=== PATIENT | male | born 1990 | race Caucasian/White ===

== ENCOUNTER 2019-12-30 17:26 | Outpatient (REF) | payer MEDICAID, SELFPAY | END 2019-12-30 17:27 | disposition home or self-care (01) | LOC: HO.LAB 17:26 | PROVIDERS: Visit Provider Internal Medicine | DX: Z20.828 Contact with and (suspected) exposure to other viral communicable diseases (principal) | CPT/HCPCS: U0003 ==

== ENCOUNTER → 2022-04-17 14:59 | Outpatient (BNVA) | payer MEDICAID, SELFPAY | PROVIDERS: PCP Family Medicine; Visit Provider Physician Assistant | DX: M77.11 Lateral epicondylitis, right elbow (principal) | CPT/HCPCS: 99202 ==

== ENCOUNTER 2022-06-10 08:30 | Outpatient (RCR) | payer MEDICAID, SELFPAY ==
--- NOTE | 2022-05-17 14:14 | MHC.OT.EP ---
[address] [phone] Occupational Therapy Plan of Care Patient Name: Surendra Hoffman Date of Evaluation: 05/17/22 Diagnosis: Right arm pain Pain Location: 4-7 Right lateral elbow, radiates down to forearm and up to upper forearm Pain Score: 4 Pain Scale Used: Numeric (0 - 10) Aggravating Factors: Reaching out, grabbing, heavy lifting, sleep Alleviating Factors: Lidocaine patches, ibuprophen 3x/day, ice Assessment: 32 yo right hand dominant male presents w/ persistent right elbow and arm pain since January of last year. He enjoys lifting weights and states pain started but he tried to push through it. He has now been resting his arm and today reports overall improvement in pain and has been stretching and icing w/ good results. On assessment, he has some tenderness to palpate over lateral epicondyle and w/ resisted wrist extension. He reports pain primarily w/ lifting, gripping and sleeping. 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 Thank you once again for your referral.
--- NOTE | 2022-06-11 11:10 | MHC.OT.DC ---
[address] [phone] F: [phone] Occupational Therapy Discharge Note Patient Name: Surendra Hoffman Provider: Kevin Calderon Diagnosis: Right arm pain Date of Evaluation: 05/17/22 Date of Discharge: 06/10/22 Treatments to Date: 7 Discharge Status: Achieved Goals Improved Function Independent with HEP Discharge Summary: Surendra was referred to OT w/ acute right lateral epicondylitis, likely overuse w/ gym activity. He has progressed well and is overall pain free except occasionally on waking. We have discussed nighttime protection and has ordered elbow brace. He is Ind w/ home exercise program and has good follow through w/ counter force brace wear, activity modification and joint protection. He is starting new job in [employer] in two weeks and will continue to be mindful of positioning and is avoiding heavy upper body training at the gym until he starts his new job. Electronically Signed By: EL Barker/Jared CHT Reviewed/agree with student documentation: Therapist: Please Sign and return to therapist, thank you for your referral.
== END 2022-06-11 11:11 | disposition home or self-care (01) ==
LOC: HO.OT 08:30
PROVIDERS: PCP Registered Nurse Community Health; Visit Provider Physician Assistant
DX: M77.11 Lateral epicondylitis, right elbow (principal)
CPT/HCPCS: 97033; 97110; 97165

== ENCOUNTER 2023-03-11 19:11 | Outpatient (REF) | payer MEDICAID, SELFPAY | END 2023-03-11 19:12 | disposition home or self-care (01) | LOC: HO.HHCLNP 19:11 | PROVIDERS: Visit Provider Internal Medicine | DX: J06.9 Acute upper respiratory infection, unspecified (principal) | CPT/HCPCS: 87070 ==

== ENCOUNTER 2023-12-11 15:14 | Outpatient (REF) | payer MEDICAID, SELFPAY ==
[2023-12-11 16:11] LABS: MANUAL DIFF FLAG NO
[2023-12-11 16:19] LABS: Basophils Absolute Auto 0.1 X10*3/uL (0.0-0.2); Basophils Percent Auto 0.6 % (0-2); Eosinophils Absolute Auto 0.3 X10*3/uL (0.0-0.4); Eosinophils Percent Auto 3.3 % (0-4); Hematocrit 45.4 % (42.0-52.0); Hemoglobin 14.6 g/dl (14.0-18.0); Imm Gran Abs Auto 0.04 X10*3/uL (0.00-0.03); Imm Gran Pct Auto 0.5 % (0.0-0.4); Lymphocytes Absolute Auto 2.7 X10*3/uL (1.2-4.9); Lymphocytes Percent Auto 31.3 % (20-40); Mean Corpuscular HGB Conc 32.2 g/dl (31.0-36.0); Mean Corpuscular Hemoglobin 28.5 pg (27.0-33.0); Mean Corpuscular Volume 88.5 fL (80.0-98.0); Mean Platelet Volume 9.2 fL (9.4-12.4); Monocytes Absolute Auto 0.6 X10*3/uL (0.1-1.2); Monocytes Percent Auto 6.5 % (2-11); Neutrophils Absolute Auto 4.9 x10*3/uL (2.0-8.3); Neutrophils Percent Auto 57.8 % (45-73); Platelet Count 279 X10*3/uL (160-400); Red Blood Count 5.13 X10*6/uL (4.60-5.80); Red Cell Distribution Width 13.1 % (11.0-16.0); White Blood Count 8.5 X10*3/uL (4.8-10.8)
[2023-12-11 16:25] LABS: Estimated Average Glucose 111 mg/dL; Hemoglobin A1C 134.4673 umol/L; Hemoglobin A1c % 5.5 % (<6.0); Total Hemoglobin (HGBA1C) 3713.7977 umol/L
[2023-12-11 16:35] LABS: Alanine Aminotransferase 26 U/L (0-40); Albumin Level 4.9 g/dL (3.5-5.0); Alkaline Phosphatase 70 U/L (39-117); Anion Gap 11 (12-20); Aspartate Amino Transferase 23 U/L (5-37); Bilirubin Total 0.6 mg/dL (0.0-1.0); Blood Urea Nitrogen 19 mg/dL (9-16); Calcium 10.6 mg/dL (8.4-10.2); Carbon Dioxide 28 mmol/L (22-29); Chloride 105 mmol/L (96-108); Cholesterol 263 mg/dL (<200); Estimated Glomerular Filt Rate > 60; Glucose Random 81 mg/dL (60-115); HDL Cholesterol 58 mg/dL (>40); LDL Cholesterol Calculated 188 mg/dL (<100); Sodium 140 mmol/L (135-145); Triglycerides 88 mg/dL (<150)
[2023-12-11 16:50] LABS: TSH reflex Free T4 1.09 uIU/mL (0.32-4.0); Vitamin D 25-OH Total 64.1 ng/mL (>30)
[2023-12-12 08:28] LABS: HIV AB/AG Nonreactive (Nonreactive); HIV Num 1 0.06 S/CO (0.00-0.99); ~HepC Num1 0.64 S/CO (0.00-0.79); ~Hepatitis C Antibody Nonreactive (Nonreactive)
== END 2023-12-11 15:15 | disposition home or self-care (01) ==
LOC: HO.HHCL 15:14
PROVIDERS: Visit Provider Internal Medicine
DX: R16.0 Hepatomegaly, not elsewhere classified (principal)
CPT/HCPCS: 36415; 80053; 80061; 82306; 83036; 84443; 85025; 86803; 87389

== ENCOUNTER 2023-12-24 09:35 | Outpatient (REF) | payer MEDICAID, SELFPAY ==
--- NOTE | ~2023-12-24 | US_ITS ---
EXAMINATION: US ABDOMEN COMPLETE CLINICAL INFORMATION: History of benign liver mass. COMPARISON: Ultrasound abdomen 09/23/2019 and 03/17/2019. MRI abdomen 09/27/2016. CT abdomen and pelvis 07/15/2016. TECHNIQUE: Real-time imaging of the abdominal viscera. Limited visualization due to bowel gas. FINDINGS: PANCREAS: Limited visualization. ABDOMINAL AORTA: Limited visualization of the abdominal aorta. Imaged portions of the abdominal aorta are within normal limits in caliber. INFERIOR VENA CAVA: Visualized portions are normal. LIVER: Hepatomegaly, 18.4 cm. Increased hepatic parenchymal heterogeneity and echogenicity could be associated with hepatocellular disease/hepatic steatosis and substantially limits visualization. Hypoechoic areas within liver adjacent to the gallbladder are characteristic of focal sparing. Correlation with liver function tests and clinical exam recommended to determine further management. GALLBLADDER: No gallstones. No gallbladder wall thickening. COMMON BILE DUCT: Normal in caliber measuring 0.4 cm in diameter. RIGHT KIDNEY: No hydronephrosis. No renal calculi. Limited visualization. The kidney measures 11.4 cm in maximum dimension. LEFT KIDNEY: No hydronephrosis. No renal calculi. Limited visualization. The kidney measures 11.4 cm in maximum dimension. SPLEEN: Normal. The spleen measures 10.4 cm in maximum dimension. FREE FLUID: None. US/US abdomen complete IMPRESSION: Hepatomegaly, 18.4 cm. Increased hepatic parenchymal heterogeneity and echogenicity could be associated with hepatocellular disease/hepatic steatosis and substantially limits visualization. Hypoechoic areas within liver adjacent to the gallbladder characteristic of focal sparing. Correlation with liver function tests and clinical exam recommended to determine further management. Electronically signed by: Regine Bateman MD 01/18/2024 08:49 PM EST
== END 2023-12-24 09:36 | disposition home or self-care (01) ==
LOC: HO.US 09:35
PROVIDERS: PCP Internal Medicine; Visit Provider Internal Medicine
DX: R16.0 Hepatomegaly, not elsewhere classified (principal)
CPT/HCPCS: 76700

== ENCOUNTER 2024-02-04 11:30 | Outpatient (AMB) | payer OTHER, SELFPAY ==
--- NOTE | 2024-02-04 11:33 | MHC.OFFVIS ---
Vital Signs 02/04/24 11:36 Height 6 ft 2 in Weight 222 lb 10.67 oz BMI 28.6 Blood Pressure Location Lt brachial Position Sitting Intake Visit Reasons: Liver MAss Intake Note: Surendra presents in the office as a new patient for a liver mass. CC: States that he has a mass on his liver that is not cancer. He is here for a monitor. 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 Increased hepatic parenchymal heterogeneity and echogenicity could be associated with hepatocellular disease/hepatic steatosis and substantially limits visualization. Hypoechoic areas within liver adjacent to the gallbladder are characteristic of focal sparing. Correlation with liver function tests and clinical exam recommended to determine further management. Assessment & Plan Assessment & Plan (1) Hypercalcemia: Code(s): E83.52 - Hypercalcemia Category: Medical (2) Fatty liver: Code(s): K76.0 - Fatty (change of) liver, not elsewhere classified Category: Medical (3) Liver tumor: Code(s): D49.0 - Neoplasm of unspecified behavior of digestive system Category: Medical Plan 34 y.o M who is here to re-estbalish care for abnormal liver imaging. Pt reports being told almost 5 years ago which showed a benign liver tumor . However unable to locate any imaging with a liver mass specifically. Does have quite dramatic fatty liver with hepatomegaly on US 12/2023. Spleen size normal. No thrombocytopenia. Most recent LFTs normal. Pt without abd pain, N,V. DOes report drinking here and there . Cholesterol elevated. Pt not on any lipid lowering meds. A1c normal. Prev work up: Neg for chronic hep Neg for AIH AFP low. Incidentally noted was persistent hypercalcemia. Vit D normal. Assessment: # Fatty liver: likely metALD. Strict counseling for etOH use done. Will check peth. Pt will also be started on a statin. Cont exercise daily. Given severe heterogeneity on US liver which limits visualisation will also get an AFP and MRI liver protocol to r/o underlying mass. # Hypercal. Noted since 2019. Vit D normal. Will chris remaining labs as below. Plan: - Labs as below - MRI liver protocol - Start mod intensity atorva 20 - HyperCal labs ordered Follow up 3 months Orders: Orders Alpha Fetoprotein Today K76.0 - Fatty (change of) liver, not elsewhere classified Calcium, Ionized Today E83.52 - Hypercalcemia Ferritin Today K76.0 - Fatty (change of) liver, not elsewhere classified Immunoglobulin A Today K76.0 - Fatty (change of) liver, not elsewhere classified MR abdomen wo/w con Today D49.0 - Neoplasm of unspecified behavior of digestive system PTH Intact Intraoperative Today E83.52 - Hypercalcemia Phosphatidylethanol, Blood Today K76.0 - Fatty (change of) liver, not elsewhere classified Phosphorus Today E83.52 - Hypercalcemia Alpha 1 Anti-trypsin Today K76.0 - Fatty (change of) liver, not elsewhere classified Ceruloplasmin Today K76.0 - Fatty (change of) liver, not elsewhere classified IRON PROFILE Today K76.0 - Fatty (change of) liver, not elsewhere classified Transglutaminase IgA Today K76.0 - Fatty (change of) liver, not elsewhere classified Medications: New atorvastatin 20 mg PO DAILY 90 tabs 1RF Coding Level of Care Code New Pt Level 4 (77175) Complex EM visit Add On G2211 Diagnoses Hypercalcemia E83.52 Fatty liver K76.0 Liver tumor D49.0
[2024-02-04 11:36] VITALS: BMI 28.6
== END 2024-02-04 12:52 | disposition home or self-care (01) ==
PROVIDERS: PCP Internal Medicine; Visit Provider Internal Medicine
DX: E83.52 Hypercalcemia (principal); K76.0 Fatty (change of) liver, not elsewhere classified; D49.0 Neoplasm of unspecified behavior of digestive system
CPT/HCPCS: 99204; G2211

== ENCOUNTER 2024-02-04 11:30 | Outpatient (REF) | payer OTHER, SELFPAY ==
[2024-02-04 14:01] LABS: Parathyroid Hormone Intact 42.9 pg/mL (8.7-77.1)
[2024-02-04 14:15] LABS: Iron 125 mcg/dL (45-160); Percent Iron Saturation 35 % (15-50); Phosphorus 3.2 mg/dL (2.7-4.5); Total Iron Binding Capacity 361 mcg/dL (228-428); Unsaturated Iron Binding 236 ug/dL
[2024-02-04 14:57] LABS: Ferritin 279 ng/mL (20-250)
[2024-02-05 16:43] LABS: Immunoglobulin A 235 mg/dL (47-310)
[2024-02-05 21:18] LABS: Transglutaminase IgA <1.0 U/mL
[2024-02-06 11:34] LABS: Calcium, Ionized 5.4 mg/dL (4.7-5.5)
[2024-02-06 12:44] LABS: Alpha 1 Anti-trypsin 135 mg/dL (83-199); Alpha Fetoprotein 1.4 ng/mL (<6.1); Ceruloplasmin 23 mg/dL (14-30)
[2024-02-10 10:03] LABS: Phosphatidylethanol 16:0-18:1 83 (H); Phosphatidylethanol 16:0-18:2 70 (H)
== END 2024-02-04 11:31 | disposition home or self-care (01) ==
LOC: HO.LAB 11:30
PROVIDERS: PCP Internal Medicine; Visit Provider Internal Medicine
DX: K76.0 Fatty (change of) liver, not elsewhere classified (principal); E83.52 Hypercalcemia; D49.0 Neoplasm of unspecified behavior of digestive system
CPT/HCPCS: 36415; 80321; 82103; 82105; 82330; 82390; 82728; 82784; 83540; 83970; 84100; 86364; 99202

== ENCOUNTER → 2024-03-24 13:55 | Outpatient (BNV) | payer OTHER, SELFPAY | PROVIDERS: PCP Internal Medicine; Visit Provider Radiology Diagnostic Radiology | DX: D49.0 Neoplasm of unspecified behavior of digestive system (principal) | CPT/HCPCS: 74183 ==

== ENCOUNTER 2024-03-24 13:58 | Outpatient (REF) | payer OTHER, SELFPAY ==
--- NOTE | ~2024-03-24 | MR_ITS ---
CLINICAL HISTORY: D49.0 - Neoplasm of unspecified behavior of digestive system Exam: MRI of the abdomen with and without intravenous contrast. Comparison: US/SR - US ABDOMEN COMPLETE - 12/24/23 09:58 EDT MR - MRI ABDOMEN WOW CONT [id number] - 09/27/16 16:00 EDT Findings: Liver is unremarkable. No hyperenhancing lesions seen within the liver. No intrahepatic biliary ductal dilatation. Main portal vein is patent. Spleen, pancreas, gallbladder, and adrenal glands are unremarkable. Symmetric enhancement of the kidneys without mass, hydronephrosis, or nephrolithiasis. Large amount of ingested contents within the stomach. No dilated small bowel. No free fluid or free air. Broad-based disc bulge is seen at the T8-9 disc level without cord signal abnormality or significant central canal stenosis. Bony structures are otherwise unremarkable. IMPRESSION: 1. No acute solid organ abnormality. 2. Unremarkable MRI of the gallbladder and biliary tree. 3. Nonspecific ingested contents within the stomach. This can be seen with recent ingestion of a meal or delayed gastric emptying. This document has been electronically signed by: Juan Daniel Buchanan MD on 03/25/2024 10:18:35
[2024-03-24] MEDS: gadobutroL 10 ML VIAL IVPUSH (14:38)
--- OUTSIDE RECORDS SUMMARY | 2024-03-24 16:16 | XMS_ITS | Clinical Summary ---
Author Organization [employer] Address [address] [facility] [address] [place] [address] Care Team Providers Care Coyote Hunter Name Role Phone Zulema Callejas MD Primary Care Provide r Allergies Active Allergy Reactions Criticality Noted Date Comments Gramineae Pollens 03/19/2022 Horse Epithelium 03/19/2022 Shellfish Allergy 03/19/2022 Medications EPINEPHrine (Epipen) 0.3 MG/0.3ML injection syringe Inject 0.3 mL into the shoulder, thigh, or buttocks. 6 Active loratadine (Claritin) 10 MG tabletIndication s:Allergic rhinitis due to pollen, unspecified seasonality Take 1 tablet (10 mg) by mouth in the morning. 30 tablet 3 Active fluticasone (Flonase) 50 MCG/ACT nasal sprayIndications :Allergic rhinitis due to pollen, unspecified seasonality Administer 1-2 sprays into each nostril if needed each day for allergies. 16 g 5 3 Active Diclofenac Sodium 1 % gelIndications:A cute left-sided low back pain without sciatica Apply topically to the affected area TID prn for pain 50 g 1 4 Active Active Problems Problem Noted Date Diagnosed Date Liver mass 12/11/2023 Assessment & Plan (12/11/2023 4:12 PM EDT): US ordered today for f/u GI referral done Pain in both feet 12/11/2023 Assessment & Plan (12/11/2023 4:12 PM EDT): Podiatry referral Dog bite of arm, left, subsequent encounter 10/01 Assessment & Plan (10/14/2023 7:45 PM EDT): Its healing well, continue abs. Td is up to date, less than 5y ago. Patient advised to contact dog catch basin cleaner and inquire re rabies vaccination status. I spoke with [facility] contract agent Betty who advised against rabies IZ now as attack was considered provoked (victim was invading property in dogs eyes) and prevalence of unvaccinated dogs in [place] is extremely low. She requested patient information to call him and have him fu by local animal control department. Patient to re consult prn. Gastroenteritis 07/14/2023 Assessment & Plan (07/14/2023 8:04 PM EDT): Advised rre oral hydration: [place], Gatorade, crystal lite, broth. Use Imodium prn diarrhea Advance to BRAT then soft diet as tolerated. Rest for 1-2d at home, out of work x 2d. Allergic rhinitis due to pollen 10/23/2015 Resolved Problems Problem Noted Date Diagnosed Date Resolved Date Shellfish allergy 11/01/2022 12/11/2023 Encounters Date Type Department Care Team Description 12/30/2023 Telephone [facility] [address] [place] [phone] Zulema Callejas MD from Last 3 Months Immunizations Name Administration Dates Next Due DTaP 1992,1992,1992 Hep A, Adult 03/27/2018,04/04/2017 Hep B, Adolescent or Pediatric 09/16/2001,2001,02/13/2000 IPV 07/05/1994, 3,1992,05/03,1992 Influenza injectable quadriv alent IIV4 with preservative 12/20/2015 Influenza injectable quadriv alent preservative free 12/25/2018,03/27/2018,02/21/2017 Influenza, IIV3, injectable 02/01/2008, 6 Influenza, Split (incl. tee fied surface antigen) 12/18/2012 Influenza, live, intranasal 11/07/2011 Influenza, seasonal, injecta ble, preservative free 12/11/2023 MMR 04/14/2001,02/13/2000 Measles 1992 Meningococcal MPSV4 07/25/2006 Pfizer Covid-19 Vaccine 12+ 12/11/2023 TD (adult), 2 Lf tetanus tox oid, preservative free, adsorbed 11/02/2020,04/14/2001,03/13/1995 Tdap 08/21/2010 Varicella 10/19/2009,02/13/2000 Family History Medical History Relation Name Comments Hypertension Maternal Grandfather Cancer Other fmhx of gastric CA Relation Name Status Comments Maternal Grandfather Other Social History Tobacco Use Types Packs/Day Years Used Date Smoking Tobacco: Never Passive Smoke Exposure: Past Smokeless Tobacco: Never Tobacco Cessation:Counseling Given: Not Answered Alcohol Use Standard Drinks/Week Comments Not Currently 0 (1 standard drink = 0.6 oz pur e alcohol) occassional Depression Answer Date Recorded Patient Health Questionnaire-9 Score 1 12/11/2023 Patient Health Questionnaire-9 Score 1 12/11/2023 Last PHQ-9: Questionnaire Data Not on file 1 Housing Stability Answer Date Recorded What is your housing situation today? I have cristinajanes harden 12/04/[address] you li ve. Do you have problems with any of the following? None of the above 12/04/2023 Food Insecurity Answer Date Recorded Within the past 12 months, y ou worried that your food would run out before you got money to buy more: Never True 12/04/2023 Within the past 12 months,th e food you bought just didn't last and you didn't have enough money to get more: Never True 05/2023 Transportation Answer Date Recorded In the past 12 months, has l ack of transportation kept you from medical appts, meetings, work or from getting things needed for daily living? No 12/04/2023 Utilities Answer Date Recorded In the past 12 months, has t he electric, gas, oil or water company threatened to shut off services in your home? No 12/04/2023 Depression Answer Date Recorded Patient Health Questionnaire-2 Score 0 12/11/2023 Internet Access Answer Date Recorded Internet Access Q1 Yes 12/11/2023 Internet Access Q2 Not on file 12/11/2023 Sex and Gender Information Value Date Recorded Sex Assigned at Male 12/31/2021 10:16 AM EDT Legal Sex Male 10:16 AM EDT Gender Identity Male 12/31/2021 10:16 AM EDT Sexual Orientation Straight 12/31/2021 10 :16 AM EDT Last Filed Vital Signs Vital Sign Reading Time Taken Comments Blood Pressure 134/90 12/11/2023 2:10 PM EDT Pulse 74 12/11/2023 2:10 PM EDT Temperature 36.2 ??C (97.1 ??F) 12/11/2023 2:10 PM ED T Respiratory Rate 22 12/11/2023 2:10 PM EDT Oxygen Saturation 98% 12/11/2023 2:10 PM EDT Inhaled Oxygen Concentration - - Weight 97.7 kg (215 lb 6.4 oz) 12/11/2023 2:10 P M EDT Height 191.8 cm (6' 3.5 ) 12/11/2023 2:10 PM EDT Body Mass Index 26.57 12/11/2023 2:10 PM EDT Plan of Treatment Health Maintenance Due Date Last Done Comments Alcohol/Substance Use Screening 2004 Depression Screening 12/10/2024 12/11/2023, 12/11/19 24 SDOH Screening 12/10/2024 12/11/2023 Tobacco Screening 12/10/2024 12/11/2023 DTaP/Tdap/Td Vaccines (7 - Td or Tdap) 11/02/2030 11/02/2020, 08/21/2010, 04/14/2001, Additional history exists Zoster Vaccines (1 of 2) 01/20/2042 RSV Patients and Patients Aged 60 years or older (1 - 1-dose 75+ series) 01/20/2067 IPV Vaccines Completed 07/05/1994, 0 03/1992, 1992, Additional history exists Hepatitis B Vaccines Completed 09/16/2001, 04/20/2001, 02/13/2000 Meningococcal Vaccine Aged Out 07/25/2006 No elena chris eligible based on patient's age to complete this topic Hepatitis A Vaccines Completed 03/27/2018, 04/04/19 18 COVID-19 Vaccine Completed 12/11/2023, , 07/17/2020 HIV Screening Completed 12/11/2023, 08/01, 11/13/2020 Hepatitis C Screening Completed 12/11/2023 , 08/16/2021, 11/13/2020 Influenza Vaccine Completed 12/11/2023, , 03/27/2018, Additional history exists HIB Vaccines Aged Out No longer eligi ble based on patient's age to complete this topic HPV Vaccines Aged Out No longer eligi ble based on patient's age to complete this topic Pneumococcal Vaccine: Pediatrics (0 to 5 Years) and At-Risk Patients (6 to 64 Years) Aged Out No longer eligible based on patient's age to complete this topic RSV under 20 months Aged Out No longe r eligible based on patient's age to complete this topic Rotavirus Vaccines Aged Out No longer eligible based on patient's age to complete this topic Procedures Procedure Name Priority Date/Time Associated Diagnosis Comments DRUG MONITORING, PHOSPHATIDYLETHANOL (PETH), BLOOD Routine 02/04/2024 12:22 PM EST VNBVR-1-MZYCAFUENDD QN Routine 12:22 PM EST ALPHA FETOPROTEIN, TUMOR MARKER Routine 02/04/2024 12:22 PM EST CERULOPLASMIN Routine 02/04/2024 12:22 PM EST CALCIUM, IONIZED Routine 02/04/2024 12:2 2 PM EST TISSUE TRANSGLUTAMINASE AB, IGA Routine 02/04/2024 12:22 PM EST IMMUNOGLOBULIN A Routine 02/04/2024 12:2 2 PM EST FERRITIN Routine 02/04/2024 12:22 PM EST IRON AND TOTAL IRON BINDING CAPACITY Routine 02/04/2024 12:22 PM EST PHOSPHATE ( PHOSPHORUS) Routine 2023 12:22 PM EST US ABDOMEN COMPLETE Routine 12/24/2023 9 :58 AM EDT Liver mass HEPATITIS C AB W/REFL TO HCV RNA, QN, PCR Routine 12/11/2023 3:19 PM EDT Liver mass HIV 1/2 ANTIGEN/ANTIBODY, FOURTH GENERATION W/RFL Routine 12/11/2023 3:19 PM EDT Liver mass from Last 3 Months or Most Recently Relevant to Health Maintenance Results * Drug Monitoring, Phosphatidylethanol (PEth), Blood (02/04/2024 12:22 PM EST) Phosphatidylethanol, Blood 83 (H) [facility] Comment:REFERENCE RANGE: <20 ng/mLTHIS TEST PERFORMED AT:[facility] [address] [phone] DIRECTOR: GIOVANY BRO MD, PHD PEt 16:0/18:2 (PLPEth) 70 (H) [facility] Comment:REFERENCE RANGE: <20 ng/mLTHIS TEST PERFORMED AT:[facility] [id number] [place] [phone] DIRECTOR: GIOVANY BRO MD, PHD [facility] Comments SEE NOTE [facility] Comment:This drug testing is for medical treatment only.Analysis was performed as non-forensic testing andthese results should be used only by healthcareproviders to render diagnosis or treatment, or tomonitor progress of medical conditions.LDT Notes:Confirmation tests were developed and their analyticalperformance characteristics have been determined by[employer]. It has not been cleared or approvedby the FDA. This assay has been validated pursuant tothe CLIA regulations and is used for clinical purposes.Healthcare Providers needing Interpretation assistance,please contact us at [phone] ( )M-F, 8am to 10pm ESTTHIS TEST PERFORMED AT:[facility] [place] [phone] DIRECTOR: MARYELLEN MENG MD 02/04/2024 12:2 2 PM EST 02/04/2024 12:22 PM EST Generic External Data Provider LAB BLOOD ORDERAB LES Final Result Performing Organization Address [facility]/ZIP Co de Phone Number [facility] [address] [place] [phone] * Iron And Total Iron Binding Capacity (02/04/2024 12:22 PM EST) Iron 125 45 - 160 mcg/dL [facility] Total Iron Binding Capacity 361 228 - 428 mcg/dL [facility] Percent Iron Saturation 35 15 - 50 % [facility] Unsaturated Iron Binding 236 ug/dL [facility] 02/04/2024 12:2 2 PM EST 02/04/2024 12:22 PM EST Generic External Data Provider LAB BLOOD ORDERAB LES Final Result Performing Organization Address [facility] Co de Phone Number [facility] [address] [place] [phone] * Hhwmt-6-Ojvicnjlnzt, Quantitative (02/04/2024 12:22 PM EST) Yxpnn-7-Qjvzobkt sin QN 135 83 - 199 mg/dL [facility] Comment:THIS TEST WAS PERFOR MED AT:[facility] [place] [phone] MENG MD 02/04/2024 12:2 2 PM EST 02/04/2024 12:22 PM EST Generic External Data Provider LAB BLOOD ORDERAB LES Final Result Performing Organization Address [facility] Co de Phone Number [facility] [address] [place] [phone] * Tissue Transglutaminase Antibody, IgA (02/04/2024 12:22 PM EST) Transglutaminase IgA <1.0 U/mL [facility] Comment:Value Interpretation ----- <15.0 Antibody not detected> or = 15.0 Antibody detectedTHIS TEST WAS PERFORMED AT:[facility] [address] [address]GZFOIMARYELLEN MENG MD 02/04/2024 12:2 2 PM EST 02/04/2024 12:22 PM EST Generic External Data Provider LAB BLOOD ORDERAB LES Final Result Performing Organization Address [facility] Number [facility] [address] [place] [phone] * Ceruloplasmin (02/04/2024 12:22 PM EST) Pathologist [facility] Ceruloplasmin 23 14 - 30 mg/dL [facility] Comment:THIS TEST WAS PERFOR MED AT:[facility] [address] [id number] MENG MD 02/04/2024 12:2 2 PM EST 02/04/2024 12:22 PM EST Generic External Data Provider LAB BLOOD ORDERAB LES Final Result Performing Organization Address [facility] de Phone Number [facility] [address] [place] [phone] * Alpha-Fetoprotein, Tumor Marker (02/04/2024 12:22 PM EST) Pathologist [facility] Alpha Fetoprotein 1.4 <6.1 ng/mL [facility] Comment:This test was perfor med using the Elis Coulterchemiluminescent method. Values obtained fromdifferent assay methods cannot be usedinterchangeably. AFP levels, regardless ofvalue, should not be interpreted as absoluteevidence of the presence or absence of disease.THIS TEST WAS PERFORMED AT:[facility] [address] [phone] MENG MD 02/04/2024 12:2 2 PM EST 02/04/2024 12:22 PM EST Generic External Data Provider LAB BLOOD ORDERAB LES Final Result Performing Organization Address [facility] Co de Phone Number [facility] [address] [place] [phone] * Phosphate (As Phosphorus) (02/04/2024 12:22 PM EST) Phosphorus 3.2 2.7 - 4.5 mg/dL [facility] 02/04/2024 12:2 2 PM EST 02/04/2024 12:22 PM EST Generic External Data Provider LAB BLOOD ORDERAB LES Final Result Performing Organization Address [facility] Co de Phone Number [facility] [address] [place] [phone] * Immunoglobulin A (02/04/2024 12:22 PM EST) Immunoglobulin A 235 47 - 310 mg/dL [facility] Comment:THIS TEST WAS PERFOR MED AT:[facility] [address] [address]NCVAQCHRIS MENG MD 02/04/2024 12:2 2 PM EST 02/04/2024 12:22 PM EST Generic External Data Provider LAB BLOOD ORDERAB LES Final Result Performing Organization Address City/[facility] Co de Phone Number [facility] [address] [place] [address] [phone] * (ABNORMAL) Ferritin (02/04/2024 12:22 PM EST) Ferritin 279(H) 20 - 250 ng/mL [facility] 02/04/2024 12:2 2 PM EST 02/04/2024 12:22 PM EST us Generic External Data Provider LAB BLOOD ORDERAB LES Final Result [facility] [address] [place] [phone] * Calcium, Ionized (02/04/2024 12:22 PM EST) Calcium, Ionized 5.4 4.7 - 5.5 mg/dL [facility] Comment:THIS TEST WAS PERFOR MED AT:[facility] [place] [phone] MENG MD 02/04/2024 12:2 2 PM EST 02/04/2024 12:22 PM EST us Generic External Data Provider LAB BLOOD ORDERAB LES Final Result Performing Organization Address [facility]/ZIP Co de Phone Number [facility] [address] [place] [phone] * US Abdomen Complete (12/24/2023 9:58 AM EDT) Anatomical Region Laterality Modality Abdomen Ultrasound 12/24/2023 9:58 AM EDT Narrative 01/18/2024 8:52 PM EST ? [facility] ?[address] ?[place] [address] ? Ultrasound Report ? Signed ? Patient: Hoffman,Surendra L ?MR#: [id number] ?? 0 ? : 1990 ?Acct:[id number] ? Age/Sex: 33 / M ?ADM Date: 10/23/24 ? Loc: HO.US ? Attending Dr: Zulema Mchugh MD ? Ordering Physician: Zulema Callejas MD ?? Date of Service: 12/24/23 ?? Procedure(s): US abdomen complete ?? Accession Number(s): [id number] ? cc: Zulema Callejas MD ? EXAMINATION: ?? US ABDOMEN COMPLETE ? CLINICAL INFORMATION: ?? History of benign liver mass. ? COMPARISON: ?? Ultrasound abdomen 09/23/2019 and 03/17/2019. MRI abdomen 09/27/2016. ?? CT abdomen and pelvis 07/15/2016. ? TECHNIQUE: ?? Real-time imaging of the abdominal viscera. ?? Limited visualization due to bowel gas. ? FINDINGS: ? PANCREAS: Limited visualization. ? ABDOMINAL AORTA: Limited visualization of the abdominal aorta. Imaged ?? portions of the abdominal aorta are within normal limits in caliber. ? INFERIOR VENA CAVA: Visualized portions are normal. ? LIVER: Hepatomegaly, 18.4 cm. Increased hepatic parenchymal ?? heterogeneity and echogenicity could be associated with hepatocellular ?? disease/hepatic steatosis and substantially limits visualization. ?? Hypoechoic areas within liver adjacent to the gallbladder are ?? characteristic of focal sparing. Correlation with liver function tests ?? and clinical exam recommended to determine further management. ? GALLBLADDER: No gallstones. No gallbladder wall thickening. ? COMMON BILE DUCT: Normal in caliber measuring 0.4 cm in diameter. ? RIGHT KIDNEY: No hydronephrosis. No renal calculi. Limited ?? visualization. The kidney measures 11.4 cm in maximum dimension. ? LEFT KIDNEY: No hydronephrosis. No renal calculi. Limited ?? visualization. The kidney measures 11.4 cm in maximum dimension. ? SPLEEN: Normal. The spleen measures 10.4 cm in maximum dimension. ? FREE FLUID: None. ? US/US abdomen complete ?? IMPRESSION: ?? Hepatomegaly, 18.4 cm. Increased hepatic parenchymal heterogeneity and ?? echogenicity could be associated with hepatocellular disease/hepatic ?? steatosis and substantially limits visualization. Hypoechoic areas ?? within liver adjacent to the gallbladder characteristic of focal ?? sparing. Correlation with liver function tests and clinical exam ?? recommended to determine further management. ? Electronically signed by: ??Regine Bateman MD ??01/18/2024 08:49 PM EST ?? RP ? Dictated By: ?Regine Bateman MD ? Signed By: ?<Electronically signed by Regine Bateman MD in OV> ? 01/18/242048 ? DD/ 0958 ? TD/TT: 12/24/23 1010 ? [employer] Techn[employer]: ? Procedure Note Donotuseinterpreter, Image - 01/18/[address] [address] Ultrasound Report Signed Patient: Surendra Hoffman LMR#: [id number] 0 : 1990Acct:[id number] Age/Sex: 33 / MADM Date: 12/24/23 Loc: HO.US Attending Dr: Zulema Mchugh MD Ordering Physician: Zulema Callejas MD Date of Service: 12/24/23 Procedure(s): US abdomen complete Accession Number(s): [id number] cc: Zulema Callejas MD EXAMINATION: US ABDOMEN COMPLETE CLINICAL INFORMATION: History of benign liver mass. COMPARISON: Ultrasound abdomen 09/23/2019 and 03/17/2019. MRI abdomen 09/27/2016. CT abdomen and pelvis 07/15/2016. TECHNIQUE: Real-time imaging of the abdominal viscera. Limited visualization due to bowel gas. FINDINGS: PANCREAS: Limited visualization. ABDOMINAL AORTA: Limited visualization of the abdominal aorta. Imaged portions of the abdominal aorta are within normal limits in caliber. INFERIOR VENA CAVA: Visualized portions are normal. LIVER: Hepatomegaly, 18.4 cm. Increased hepatic parenchymal heterogeneity and echogenicity could be associated with hepatocellular disease/hepatic steatosis and substantially limits visualization. Hypoechoic areas within liver adjacent to the gallbladder are characteristic of focal sparing. Correlation with liver function tests and clinical exam recommended to determine further management. GALLBLADDER: No gallstones. No gallbladder wall thickening. COMMON BILE DUCT: Normal in caliber measuring 0.4 cm in diameter. RIGHT KIDNEY: No hydronephrosis. No renal calculi. Limited visualization. The kidney measures 11.4 cm in maximum dimension. LEFT KIDNEY: No hydronephrosis. No renal calculi. Limited visualization. The kidney measures 11.4 cm in maximum dimension. SPLEEN: Normal. The spleen measures 10.4 cm in maximum dimension. FREE FLUID: None. US/US abdomen complete IMPRESSION: Hepatomegaly, 18.4 cm. Increased hepatic parenchymal heterogeneity and echogenicity could be associated with hepatocellular disease/hepatic steatosis and substantially limits visualization. Hypoechoic areas within liver adjacent to the gallbladder characteristic of focal sparing. Correlation with liver function tests and clinical exam recommended to determine further management. Electronically signed by: Regine Bateman MD 01/18/2024 08:49 PM EST Dictated By: Regine Bateman MD Signed By: <Electronically signed by Regine Bateman MD in OV> 01/18/242048 DD/ 7 TD/TT: 12/24/23 1010 Quality Technician [employer]: us Zulema Mchugh MD IMG US PROCEDURES Matt vidal Result - Final * Hepatitis C Antibody with Reflex to HCV, RNA, Quantitative, Real-Time PCR (12/11/2023 3:19 PM EDT) Hepatitis C Antibody Nonreactive Nonreactive [facility] Comment:Antibodies to HCV no t detected; does not exclude early acuteHCV infection. Blood Venous blood specimen / Unknown 12/11/2023 3:19 PM EDT 12/11/2023 4:08 PM EDT Zulema Mchugh MD LAB BLOOD ORDERABLES Final Result [facility] [address], [place] [phone] * HIV-1/2 Antigen and Antibodies, Fourth Generation, with Reflexes (12/11/2023 3:19 PM EDT) HIV AB/AG Nonreactive Nonreactive [facility] Comment:HIV-1 p24 Ag and/or HIV-1/HIV-2 Ab not detected.A test result that is nonreactive does not exclude thepossibility of exposure to or infection with HIV-1 and/orHIV-2. Nonreactive results in this assay for individualswith prior exposure to HIV-1 and/or HIV-2 may be due toantigen and antibody levels that are below the limit ofdetection of this assay.The ProtecodeniIncont HIV Ag/Ab Combo assay result andsupplemental assay results should be interpreted inconjunction with the patient's clinical presentation,history and other laboratory results. If the results areinconsistent with clinical evidence, additional testing issuggested to confirm the result. Blood Venous blood specimen / Unknown 12/11/2023 3:19 PM EDT 12/11/2023 4:08 PM EDT us Zulema Mchugh MD LAB BLOOD ORDERABLES Final Result [facility] [address] [place] [phone] from Last 3 Months or Most Recently Relevant to Health Maintenance Insurance [facility] C[employer] [id number] Advance Directives Documents on File Type Date Recorded Patient Supervisor [employer] Expl anation Advance Directives and Livin g Will 10/14/2023 2:58 PM Care Teams Coyote Hunter Relationship Specialty Start Date End Date Zulema Callejas MD [address] [place] [phone] PCP - General Internal Medicine 12/11/23
--- OUTSIDE RECORDS SUMMARY | 2024-03-24 16:16 | XMS_ITS | Encounter Summary ---
Author Organization [employer] Address [address] [place] [address] Care Team Providers Care Trouble Operator Name Role Phone Zulema Callejas MD Primary Care Provide r Encounter Details Date Type Department Care Team ([facility] st Contact Info) Description 12/12/2023 Orders Only [facility] [address] [place] [address] Zulema Callejas MD [address] [place], [place] [phone] Social History Tobacco Use Types Packs/Day Years Used Date Smoking Tobacco: Never Passive Smoke Exposure: Past Smokeless Tobacco: Never Alcohol Use Standard Drinks/Week Comments Not Currently 0 (1 standard drink = 0.6 oz pur e alcohol) occassional Depression Answer Date Recorded Patient Health Questionnaire-9 Score 1 12/11/2023 Patient Health Questionnaire-9 Score 1 12/11/2023 Last PHQ-9: Questionnaire Data Not on file 1 Housing Stability Answer Date Recorded What is your housing situation today? I have cristina harden 12/04/[address] you [...] Orientation Straight 12/31/2021 10 :16 AM EDT documented as of this encounter Plan of Treatment Not on file documented as of this encounter Procedures Procedure Name Priority Date/Time Associated Diagnosis Comments DRUG MONITORING, PHOSPHATIDYLETHANOL (PETH), BLOOD Routine 02/04/2024 12:22 PM EST IRON AND TOTAL IRON BINDING CAPACITY Routine 02/04/2024 12:22 PM EST [id number] QN Routine 12:22 PM EST TISSUE TRANSGLUTAMINASE AB, IGA Routine 02/04/2024 12:22 PM EST CERULOPLASMIN Routine 02/04/2024 12:22 PM EST ALPHA FETOPROTEIN, TUMOR MARKER Routine 02/04/2024 12:22 PM EST PHOSPHATE ( PHOSPHORUS) Routine 2023 12:22 PM EST IMMUNOGLOBULIN A Routine 02/04/2024 12:2 2 PM EST FERRITIN Routine 02/04/2024 12:22 PM EST CALCIUM, IONIZED Routine 02/04/2024 12:2 2 PM EST documented in this encounter Results * Drug Monitoring, Phosphatidylethanol (PEth), Blood (02/04/2024 12:22 PM EST) Phosphatidylethanol, Blood 83 (H) [facility] Comment:REFERENCE RANGE: <20 ng/mLTHIS TEST PERFORMED AT:[facility] [id number] [place] [phone] DIRECTOR: GIOVANY BOR MD, PHD PEt 16:0/18:2 (PLPEth) 70 (H) [facility] Comment:REFERENCE RANGE: <20 ng/mLTHIS TEST PERFORMED AT:[facility] [address] [place] [phone] DIRECTOR: GIOVANY BRO MD, PHD [facility] Comments SEE NOTE [facility] Comment:This drug testing is for medical treatment only.Analysis was performed as non-forensic testing andthese results should be used only by healthcareproviders to render diagnosis or treatment, or tomonitor progress of medical conditions.LDT Notes:Confirmation tests were developed and their analyticalperformance characteristics have been determined by[employer]. It has not been cleared or approvedby the FDA. This assay has been validated pursuant tothe CLIA regulations and is used for clinical purposes.Healthcare Providers needing Interpretation assistance,please contact us at [phone] ( )M-F, 8am to 10pm ESTTHIS TEST PERFORMED AT:[facility] [address] [phone] DIRECTOR: MARYELLEN MENG MD 02/04/2024 12:2 2 PM EST 02/04/2024 12:22 PM EST us Generic External Data Provider LAB BLOOD ORDERAB LES Final Result Performing Organization Address [facility]/ZIP Co de Phone Number [facility] [address] [place] [phone] * Oiaic-9-Mrpsjsunxue, Quantitative (02/04/2024 12:22 PM EST) Trqxt-7-Boumjzxf sin QN 135 83 - 199 mg/dL [facility] Comment:THIS TEST WAS PERFOR MED AT:[facility] [address] [phone] MENG MD 02/04/2024 12:2 2 PM EST 02/04/2024 12:22 PM EST [facility] External Data Provider LAB BLOOD ORDERAB LES Final Result Performing Organization Address [facility] Number [facility] [address] [place] [phone] * Alpha-Fetoprotein, Tumor Marker (02/04/2024 12:22 PM EST) Alpha Fetoprotein 1.4 <6.1 ng/mL [facility] Comment:This test was perfor med using the Elis Coulterchemiluminescent method. Values obtained fromdifferent assay methods cannot be usedinterchangeably. AFP levels, regardless ofvalue, should not be interpreted as absoluteevidence of the presence or absence of disease.THIS TEST WAS PERFORMED AT:[facility] [address] [phone] MENG MD 02/04/2024 12:2 2 PM EST 02/04/2024 12:22 PM EST Generic External Data Provider LAB BLOOD ORDERAB LES Final Result Performing Organization Address [facility] Co de Phone Number [facility] [address] [place] [phone] * Ceruloplasmin (02/04/2024 12:22 PM EST) Ceruloplasmin 23 14 - 30 mg/dL [facility] Comment:THIS TEST WAS PERFOR MED AT:[facility] [address] JOSH MENG MD 02/04/2024 12:2 2 PM EST 02/04/2024 12:22 PM EST Generic External Data Provider LAB BLOOD ORDERAB LES Final Result [facility] [address] [place] [phone] * Calcium, Ionized (02/04/2024 12:22 PM EST) Pathologist [facility] Calcium, Ionized 5.4 4.7 - 5.5 mg/dL [facility] Comment:THIS TEST WAS PERFOR MED AT:[facility] [address] JOSH MENG MD 02/04/2024 12:2 2 PM EST 02/04/2024 12:22 PM EST Generic External Data Provider LAB BLOOD ORDERAB LES Final Result Performing Organization Address [facility]/ZIP Co de Phone Number [facility] [address] [place] [phone] [phone] * Tissue Transglutaminase Antibody, IgA (02/04/2024 12:22 PM EST) Transglutaminase IgA <1.0 U/mL [facility] Comment:Value Interpretation ----- <15.0 Antibody not detected> or = 15.0 Antibody detectedTHIS TEST WAS PERFORMED AT:[facility] [address] JOSH MENG MD 02/04/2024 12:2 2 PM EST 02/04/2024 12:22 PM EST us Generic External Data Provider LAB BLOOD ORDERAB LES Final Result Performing Organization Address [facility]/[place] de Phone Number [facility] [address] [place] [phone] * Immunoglobulin A (02/04/2024 12:22 PM EST) Immunoglobulin A 235 47 - 310 mg/dL [facility] Comment:THIS TEST WAS PERFOR MED AT:[facility] [place] [phone] MENG MD 02/04/2024 12:2 2 PM EST 02/04/2024 12:22 PM EST Generic External Data Provider LAB BLOOD ORDERAB LES Final Result Performing Organization Address [facility] Phone Number [facility] [address] [place] [phone] * (ABNORMAL) Ferritin (02/04/2024 12:22 PM EST) Ferritin 279(H) 20 - 250 ng/mL [facility] 02/04/2024 12:2 2 PM EST 02/04/2024 12:22 PM EST Generic External Data Provider LAB BLOOD ORDERAB LES Final Result Performing Organization Address [facility] Co de Phone Number [facility] [address] [place] [phone] * Iron And Total Iron Binding Capacity (02/04/2024 12:22 PM EST) Iron 125 45 - 160 mcg/dL [facility] Total Iron Binding Capacity 361 228 - 428 mcg/dL [facility] Percent Iron Saturation 35 15 - 50 % [facility] Unsaturated Iron Binding 236 ug/dL [facility] 02/04/2024 12:2 2 PM EST 02/04/2024 12:22 PM EST us Generic External Data Provider LAB BLOOD ORDERAB LES Final Result Performing Organization Address [facility] Co de Phone Number [facility] [address] [place] [address] [phone] * Phosphate (As Phosphorus) (02/04/2024 12:22 PM EST) Phosphorus 3.2 2.7 - 4.5 mg/dL [facility] 02/04/2024 12:2 2 PM EST 02/04/2024 12:22 PM EST us Generic External Data Provider LAB BLOOD ORDERAB LES Final Result Performing Organization Address [facility] de Phone Number [facility] [address] [place] [phone] documented in this encounter Visit Diagnoses Not on filedocumented in this encounter Additional Health Concerns Assessment Noted Time PHQ-9 Depression Total Score: 1 12/11/19 2:04 PM EDT documented as of this encounter Care Teams Trouble Operator Relationship Specialty Start Date End Date Zulema Callejas MD [address] [place] [address] PCP - General Internal Medicine 12/11/23 documented as of this encounter
--- OUTSIDE RECORDS SUMMARY | 2024-03-24 16:16 | XMS_ITS | Encounter Summary ---
Author Organization [employer] Address [address] [facility] 7 [place] [address] Care Team Providers Care Retention Representative Name Role Phone Sarah Orona Primary Care Provider [phone] Christine Wolf Primary Care Provider [phone] Sandee Irizarry NP Primary Care Provider [phone] Zulema Callejas MD Primary Care Provide r Encounter Details Date Type Department Care Team (Latest Contact Info) Description 07/27/2021 Abstract [facility] CONVERSIONS Dental, Provider, DDS Social History Tobacco Use Types Packs/Day Years Used Date Smoking Tobacco: Never Assessed Sex and Gender Information Value Date Recorded Sex Assigned at Male 12/31/2021 10:16 AM EDT Legal Sex Male 10:16 AM EDT Gender Identity Male 12/31/2021 10:16 AM EDT Sexual Orientation Straight 12/31/2021 10 :16 AM EDT documented as of this encounter Plan of Treatment Not on file documented as of this encounter Visit Diagnoses Not on filedocumented in this encounter Care Teams Retention Representative Relationship Specialty Start Date End Date Sarah Orona FNP [address] [place] [address] PCP - General Family Medicine 10/30/21 11/18/22 Christine Wolf FNP [address] [place] [address] PCP - General Family Medicine 11/19/22 03/31/23 Sandee Irizarry NP [address] [place] [phone] PCP - General Family Medicine 04/01/23 12/10/23 Zulema Callejas MD [address] [place] [phone] PCP - General Internal Medicine 12/11/23 documented as of this encounter
--- OUTSIDE RECORDS SUMMARY | 2024-03-24 16:16 | XMS_ITS | Encounter Summary ---
Author Organization [employer] Address [address] [facility] [address] [place] [address] Care Team Providers Care Fisher Hand Line Name Role Phone Sandee Irizarry NP Primary Care Provider [phone] Zulema Callejas MD Primary Care Provide r Reason for Visit * Reason Onset Date Comments Nurse Triage 10/13/2023 Encounter Details Date Type Department Care Team (Late st Contact Info) Description 10/13/2023 Telephone [facility] MEDICINE [address] [place], [place] [phone] Sandee Irizarry NP [address] [place], [place] [phone] Nurse Triage Social History Tobacco Use Types Packs/Day Years Used Date Smoking Tobacco: Never Passive Smoke Exposure: Past Smokeless Tobacco: Never Alcohol Use Standard Drinks/Week Comments Not Currently 0 (1 standard drink = 0.6 oz pur e alcohol) occassional Depression Answer Date Recorded Patient Health Questionnaire-9 Score 0 11/01/2022 Housing Stability Answer Date Recorded What is your housing situation today? I have cristina harden 12/24/[address] you li ve. Do you have problems with any of the following? None of the above 12/24/2022 Food Insecurity Answer Date Recorded Within the past 12 months, y ou worried that your food would run out before you got money to buy more: Never True 12/24/2022 Within the past 12 months,th e food you bought just didn't last and you didn't have enough money to get more: Never True Transportation Answer Date Recorded In the past 12 months, has l ack of transportation kept you from medical appts, meetings, work or from getting things needed for daily living? No 12/24/2022 Utilities Answer Date Recorded In the past 12 months, has t he electric, gas, oil or water company threatened to shut off services in your home? No 12/24/2022 Depression Answer Date Recorded Patient Health Questionnaire-2 Score 0 11/01/2022 Sex and Gender Information Value Date Recorded Sex Assigned at Male 12/31/2021 10:16 AM EDT Legal Sex Male 10:16 AM EDT Gender Identity Male 12/31/2021 10:16 AM EDT Sexual Orientation Straight 12/31/2021 10 :16 AM EDT documented as of this encounter Miscellaneous Notes * Telephone Encounter - Pina Alejandre RN - 10/13/2023 10:04 AM EDT Triage call Pt reports dog bite 10/11/23 about noon. 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 Pt sustained a puncture wound, cleaned with soap and water, was directed to urgent care in [facility] and treated there. Pt has been taking amoxicillin 125mg bid as prescribed and will take for total of 10 days. Pt reports wound is swollen,slightly red and painful. Pt was advised to seek further care if swelling occurred. Pt last TD 11/02/2020. Pt tried to inquire about status of dogs shots but, unable to obtain answer from patient observer. Pt will continue to try to find out this information. Pt is advised to come to [facility] today open till 8pm and Pt agrees. Insurance is verified as active. Protocol Used: Animal Bite (Adult) Protocol-Based Disposition: See in Office or Video Visit Today Video visit not offered Positive Triage Question: * Patient wants to be seen * All higher-acuity triage questions were negative Care Advice Discussed: * Reassurance and Education - Small Puncture Wound * Apply Pressure on a Wound to Stop Bleeding * Clean the Wound * Antibiotic Ointment * Expected Course * Reasons To Call Back - Fever occurs - Wound begins to look infected (pus, redness, red streaks) - Doesn't heal within 14 days - You become worse * Telephone Encounter - Denise Emmanuel - 10/13/2023 9:34 AM EDT Symptom: Animal Bite Outcome: Schedule an urgent appointment (within 1 hour) or talk to a nurse or provider soon Reason: Bite broke the skin (cut, puncture, or scratch) The caller accepted this outcome documented in this encounter Plan of Treatment Not on file documented as of this encounter Visit Diagnoses Not on filedocumented in this encounter Additional Health Concerns Assessment Noted Time PHQ-9 Depression Total Score: 0 11/02/19 23 3:04 PM EDT documented as of this encounter Care Teams Fisher Hand Line Relationship Specialty Start Date End Date Sandee Irizarry NP [address] [place] [address] PCP - General Family Medicine 04/01/23 12/10/23 Zulema Callejas MD [address] [place] [address] PCP - General Internal Medicine 12/11/23 documented as of this encounter
--- OUTSIDE RECORDS SUMMARY | 2024-03-24 16:16 | XMS_ITS | Clinical Summary ---
Author Organization [facility] Address [address] [place] [address] Care Team Providers Care Leather Goods I Assembler Name Role Phone Zulema Callejas MD Primary Care Provide r Allergies Active Allergy Reactions Criticality Noted Date Comments Levonorgestrel-Ethinyl Estrad 03/27/2017 Seasonal Allergies Other Reaction(s): Runny Nose/Rhinitis Shellfish Derived Itching 03/27/2017 Shellfish Allergy Other Reaction(s): Hives/Urticaria Medications Medication Sig Dispensed Refills Start Date End Date Status loratadine (CLARITIN ORAL) Take by mouth. Active container,empty (NASAL SPRAY BOTTLE MISC) NASAL SPRAY SALINE NA by Nasal route. Active Social History Tobacco Use Types Packs/Day Years Used Date Smoking Tobacco: Never Assessed Sex and Gender Information Value Date Recorded Sex Assigned at Not on file Gender Identity Not on file Sexual Orientation Not on file Plan of Treatment Upcoming Encounters Date Type Department Care Team ([facility] Contact Info) Description 04/28/2024 9:00 AM EST Office Visit Orthopedic Surgery - [address] [phone] Max Vasquez DPM [address] [address] Health Maintenance Due Date Last Done Comments DTaP,Tdap,and Td Vaccines (1 - Tdap) 01/20/2011 Hepatitis B Vaccines (1 of 3 - 19+ 3-dose series) 01/20/2011 COVID-19 Vaccine ( - 2023-2 5 season) 2023 Influenza Vaccine (#1) 2023 Depression Screening 02/10/2024 HIV Screening 02/10/2024 Hepatitis C Screening 02/10/2024 Social Influencers of Health Screening 02/10/2024 HIB Vaccines Aged Out No longer eligi ble based on patient's age to complete this topic HPV Vaccines Aged Out No longer eligi ble based on patient's age to complete this topic Hepatitis A Vaccines Aged Out No long er eligible based on patient's age to complete this topic IPV Vaccines Aged Out No longer eligi ble based on patient's age to complete this topic MMR Vaccines Aged Out No longer eligi ble based on patient's age to complete this topic Meningococcal ACWY Vaccine Aged Out N o longer eligible based on patient's age to complete this topic Pneumococcal Vaccine: Pediat rics (0 to 5 Years) and At-Risk Patients (6 to 64 Years) Aged Out No longer eligible b ased on patient's age to complete this topic RSV Immunization Patients Un mic 20 months Aged Out No longer eligible b ased on patient's age to complete this topic Varicella Vaccines Aged Out No longer eligible based on patient's age to complete this topic Care Teams Leather Goods I Assembler Relationship Specialty Start Date End Date Zulema Callejas MD [address] [place] [phone] PCP - General 12/24/23
== END 2024-03-24 13:59 | disposition home or self-care (01) ==
LOC: HO.MRI 13:58
PROVIDERS: PCP Internal Medicine; Visit Provider Internal Medicine
DX: D49.0 Neoplasm of unspecified behavior of digestive system (principal)
CPT/HCPCS: 74183; A9585

== ENCOUNTER 2024-10-06 09:58 | Outpatient (REF) | payer OTHER, SELFPAY ==
--- OUTSIDE RECORDS SUMMARY | 2024-10-06 10:30 | XMS_ITS | Encounter Summary ---
Author Organization [employer] Address [address] [facility] 7 [place] [address] Care Team Providers Care Layout Operator Name Role Phone Sandee Irizarry NP Primary Care Provider [phone] Zulema Callejas MD Primary Care Provide r Reason for Visit * Reason Onset Date Comments Nurse Triage 10/13/2023 Encounter Details Date Type Department Care Team (Late st Contact Info) Description 10/13/2023 Telephone [facility] MEDICINE [address] [place], [place] [phone] Sandee Irizarry NP [address] [place], [place] [phone] Nurse Triage Social History Tobacco Use Types Packs/Day Years Used Date Smoking Tobacco: Never Passive Smoke Exposure: Past Smokeless Tobacco: Never Alcohol Use Standard Drinks/Week Comments Not Currently 0 (1 standard drink = 0.6 oz pur e alcohol) occassional Depression Answer Date Recorded Patient Health Questionnaire-9 Score 0 11/01/2022 Housing Stability Answer Date Recorded What is your housing situation today? I have cristina fina 12/24/[address] you li [...] water, was directed to urgent care in [facility] and treated there. Pt has been taking amoxicillin 125mg bid as prescribed and will take for total of 10 days. Pt reports wound is swollen,slightly red and painful. Pt was advised to seek further care if swelling occurred. Pt last TD 11/02/2020. Pt tried to inquire about status of dogs shots but, unable to obtain answer from [employer] dispatcher. Pt will continue to try to find out this information. Pt is advised to come to [facility] today open till 8pm and Pt agrees. [...] documented as of this encounter Care Teams Layout Operator Relationship Specialty Start Date End Date Sandee Irizarry NP [address] [place] [address] PCP - General Family Medicine 04/01/23 12/10/23 Zulema Callejas MD [address] [place] [address] PCP - General Internal Medicine 12/11/23 documented as of this encounter
[2024-10-06 12:04] LABS: Alanine Aminotransferase 34 U/L (0-40); Albumin Level 4.9 g/dL (3.5-5.0); Alkaline Phosphatase 67 U/L (39-117); Anion Gap 10 (12-20); Aspartate Amino Transferase 21 U/L (5-37); Blood Urea Nitrogen 13 mg/dL (9-16); Calcium 9.7 mg/dL (8.4-10.2); Carbon Dioxide 30 mmol/L (22-29); Chloride 108 mmol/L (96-108); Cholesterol 235 mg/dL (<200); Estimated Glomerular Filt Rate > 60; HDL Cholesterol 51 mg/dL (>40); Potassium 4.5 mmol/L (3.3-5.1); Sodium 143 mmol/L (135-145); Total Protein 7.7 g/dL (6.5-8.0); Triglycerides 143 mg/dL (<150)
[2024-10-06 12:12] LABS: HBS Num1 538.48 mIU/mL (0-7.99); HBc Num1 0.04 S/CO (0.00-0.79); HBsAGNum1 0.39 S/CO (0.00-0.99); HIV Num 1 0.05 S/CO (0.00-0.99); Hepatitis A Antibody IgM 0.19 Index (0-0.79); Hepatitis B Surface Antigen Negative (Negative); ~HepC Num1 0.09 S/CO (0.00-0.79); ~Hepatitis A Antibody IgM Nonreactive (Nonreactive); ~Hepatitis B Surface Antibody REACTIVE (Nonreactive); ~Hepatitis C Antibody Nonreactive (Nonreactive)
[2024-10-06 12:24] LABS: Parathyroid Hormone Intact 42.8 pg/mL (8.7-77.1)
== END 2024-10-06 09:59 | disposition home or self-care (01) ==
LOC: HO.HHCL 09:58
PROVIDERS: Internal Medicine; PCP Internal Medicine; Visit Provider Internal Medicine
DX: Z11.3 Encounter for screening for infections with a predominantly sexual mode of transmission (principal); Z11.4 Encounter for screening for human immunodeficiency virus [HIV]; Z11.59 Encounter for screening for other viral diseases; K76.0 Fatty (change of) liver, not elsewhere classified
CPT/HCPCS: 36415; 80053; 80061; 83970; 86592; 86704; 86706; 86709; 86803; 87340; 87389